=== PATIENT | female | born 1955 | race Caucasian/White ===

== ENCOUNTER → 2018-04-11 14:46 | Outpatient (CLI) | payer BC, SELFPAY ==
--- NOTE | 2018-04-11 | DI.CT.S_ITS ---
PROCEDURE: CT ABDOMEN WWO PELVIS W INDICATIONS: Gross hematuria. TECHNIQUE: After the administration of oral contrast, 5 mm thick sections acquired from the diaphragms to the iliac crests. After the administration of intravenous contrast, 5 mm thick sections acquired from the diaphragms to the symphysis. 5 mm thick coronal and sagittal reformats were acquired. For radiation dose reduction, the following was used: automated exposure control, adjustment of mA and/or kV according to patient size. COMPARISON: None. FINDINGS: Image quality: Excellent. ABDOMEN: Lung bases: Lung bases are clear. Heart size is normal. Solid organs: Liver is normal in size and enhancement. Gallbladder contains sludge and what appears to be at least one calcified gallstone at gallbladder fundus. Acute cholecystitis is not found. Biliary system is non-dilated. Pancreas enhances normally. Spleen is normal in size and enhancement. No adrenal nodules on the right but there is a large 3.8 x 2.9 cm left adrenal mass, which shows internal enhancement and is indeterminate in etiology. This has contrast-enhancing radiodensity of approximately 18 Hounsfield units. It may represent a benign adenoma but large. Both kidneys are normal in size. No hydronephrosis or left-sided nephrolithiasis. There is, however, a currently nonobstructive ovoid dense calculus within the collecting system of the right kidney, within the renal pelvis, measuring up to 8 x 14 mm in diameter. This has an internal radiodensity of 1014 Hounsfield units. A 5 x 6 cm anterolateral right mid renal cyst is simple in character. Bowel and peritoneum: Stomach, small and large bowel loops are normal in caliber and wall thickness. No free fluid or air. Nodes and vessels: No retroperitoneal or mesenteric adenopathy by size criteria. Aorta and inferior vena are normal in caliber. Miscellaneous: No ventral hernias. PELVIS: Genitourinary: Bladder wall thickness is normal. Miscellaneous: No inguinal hernias or adenopathy. Bones: No suspicious bony lesions. No vertebral body compression fractures. IMPRESSION: 1. There is a large calculus within the central renal pelvis on the right measuring up to 8 x 14 mm and approximately 1014 Hounsfield units in radiodensity. A calculus of this large size generally will not pass without urologic intervention. This is the presumed etiology of reported gross hematuria. 2. Throughout the urinary tract no underlying infection or neoplasm is suspected. 3. There is a large left adrenal mass, measuring approximately 3.8 x 2.9 cm, which is relatively low density but requires followup to establish benign etiology. Followup adrenal protocol noncontrast MR scanning is recommended. Dictated by: Jose Schmitt M.D. on 04/11/2018 at 15:46 Approved by: Jose Schmitt M.D. on 04/11/2018 at 15:53
== END ==
PROVIDERS: Visit Provider Urology
DX: N20.0 Calculus of kidney (principal); E27.9 Disorder of adrenal gland, unspecified
CPT/HCPCS: 74178; Q9967

== ENCOUNTER → 2024-08-13 09:59 | Outpatient (CLI) | payer BC, MEDICARE, SELFPAY | LOC: WC 10:21 | PROVIDERS: PCP Physician Assistant Medical; Referring Provider Podiatrist; Visit Provider Surgery | DX: E11.621 Type 2 diabetes mellitus with foot ulcer (principal); E11.42 Type 2 diabetes mellitus with diabetic polyneuropathy; L97.522 Non-pressure chronic ulcer of other part of left foot with fat layer exposed; L84 Corns and callosities; R60.0 Localized edema; Z79.01 Long term (current) use of anticoagulants | CPT/HCPCS: 11042; 99203; 99214 ==

== ENCOUNTER → 2024-08-16 14:33 | Outpatient (CLI) | payer BC, MEDICARE, SELFPAY | LOC: WC 14:34 | PROVIDERS: PCP Physician Assistant Medical; Referring Provider Podiatrist; Visit Provider Surgery | DX: E11.621 Type 2 diabetes mellitus with foot ulcer (principal); L97.422 Non-pressure chronic ulcer of left heel and midfoot with fat layer exposed; L84 Corns and callosities | CPT/HCPCS: 99213 ==

== ENCOUNTER → 2024-08-20 15:12 | Outpatient (CLI) | payer BC, SELFPAY | PROVIDERS: PCP Physician Assistant Medical; Referring Provider Physician Assistant Medical; Visit Provider Surgery | DX: E11.621 Type 2 diabetes mellitus with foot ulcer (principal); L97.522 Non-pressure chronic ulcer of other part of left foot with fat layer exposed; L84 Corns and callosities; Z79.01 Long term (current) use of anticoagulants; E11.42 Type 2 diabetes mellitus with diabetic polyneuropathy | CPT/HCPCS: 11042 ==

== ENCOUNTER → 2024-08-23 15:42 | Outpatient (CLI) | payer BC, SELFPAY | PROVIDERS: PCP Physician Assistant Medical; Referring Provider Podiatrist; Visit Provider Physician Assistant | DX: E11.621 Type 2 diabetes mellitus with foot ulcer (principal); L97.422 Non-pressure chronic ulcer of left heel and midfoot with fat layer exposed; L84 Corns and callosities | CPT/HCPCS: 99213 ==

== ENCOUNTER → 2024-08-27 09:11 | Outpatient (CLI) | payer BC, MEDICARE, SELFPAY | LOC: WC 09:12 | PROVIDERS: PCP Physician Assistant Medical; Referring Provider Podiatrist; Visit Provider Surgery | DX: E11.621 Type 2 diabetes mellitus with foot ulcer (principal); E11.42 Type 2 diabetes mellitus with diabetic polyneuropathy; L97.522 Non-pressure chronic ulcer of other part of left foot with fat layer exposed; L84 Corns and callosities; Z79.01 Long term (current) use of anticoagulants | CPT/HCPCS: 11042 ==

== ENCOUNTER → 2024-08-30 15:05 | Outpatient (CLI) | payer BC, MEDICARE, SELFPAY | LOC: WC 15:06 | PROVIDERS: PCP Physician Assistant Medical; Referring Provider Podiatrist; Visit Provider Physician Assistant | DX: E11.621 Type 2 diabetes mellitus with foot ulcer (principal); L97.422 Non-pressure chronic ulcer of left heel and midfoot with fat layer exposed; L84 Corns and callosities | CPT/HCPCS: 99213 ==

== ENCOUNTER → 2024-09-03 15:20 | Outpatient (CLI) | payer BC, MEDICARE, SELFPAY | LOC: WC 15:24 | PROVIDERS: PCP Physician Assistant Medical; Referring Provider Podiatrist; Visit Provider Surgery | DX: E11.621 Type 2 diabetes mellitus with foot ulcer (principal); E11.42 Type 2 diabetes mellitus with diabetic polyneuropathy; L97.522 Non-pressure chronic ulcer of other part of left foot with fat layer exposed; L84 Corns and callosities; Z79.01 Long term (current) use of anticoagulants | CPT/HCPCS: 11042 ==

== ENCOUNTER → 2024-09-06 15:08 | Outpatient (CLI) | payer BC, SELFPAY | PROVIDERS: PCP Physician Assistant Medical; Referring Provider Podiatrist; Visit Provider Physician Assistant | DX: E11.621 Type 2 diabetes mellitus with foot ulcer (principal); L97.422 Non-pressure chronic ulcer of left heel and midfoot with fat layer exposed; L84 Corns and callosities | CPT/HCPCS: 99213 ==

== ENCOUNTER → 2024-09-09 15:14 | Outpatient (CLI) | payer BC, SELFPAY | PROVIDERS: PCP Physician Assistant Medical; Referring Provider Podiatrist; Visit Provider Surgery | DX: E11.621 Type 2 diabetes mellitus with foot ulcer (principal); E11.42 Type 2 diabetes mellitus with diabetic polyneuropathy; L97.522 Non-pressure chronic ulcer of other part of left foot with fat layer exposed; L84 Corns and callosities; Z79.01 Long term (current) use of anticoagulants | CPT/HCPCS: 11042 ==

== ENCOUNTER → 2024-09-17 15:24 | Outpatient (CLI) | payer BC, SELFPAY | LOC: WC 15:24 | PROVIDERS: PCP Physician Assistant Medical; Referring Provider Podiatrist; Visit Provider Surgery | DX: E11.42 Type 2 diabetes mellitus with diabetic polyneuropathy (principal); L84 Corns and callosities; Z79.01 Long term (current) use of anticoagulants | CPT/HCPCS: 99213 ==

== ENCOUNTER → 2024-09-23 13:57 | Outpatient (CLI) | payer BC, SELFPAY | LOC: WC 15:09 | PROVIDERS: PCP Physician Assistant Medical; Referring Provider Podiatrist; Visit Provider Surgery | DX: Z09 Encounter for follow-up examination after completed treatment for conditions other than malignant neoplasm (principal); Z86.31 Personal history of diabetic foot ulcer | CPT/HCPCS: 99211; 99213 ==